=== PATIENT | male | born 1990 | race African-American/Black ===

== ENCOUNTER 2020-09-03 11:06 | Emergency (ER) | payer SELFPAY ==
--- NOTE | 2020-09-03 12:20 | NUR ---
ED Nurse Note: pt not in wr
--- NOTE | 2020-09-03 12:21 | Emergency Room Report ---
History of Present Illness General Chief Complaint: To Be Triaged Present Illness HPI Patient left before triage Judith Pan M.D. Sep 03, 2020 12:21
--- NOTE | 2020-09-03 12:42 | NUR ---
ED Nurse Note:PT LWBS
== END 2020-09-03 13:00 | disposition left against medical advice (07) ==
LOC: EMR 12:25
DX: Z53.21 Procedure and treatment not carried out due to patient leaving prior to being seen by health care provider (principal)
CPT/HCPCS: 82962